=== PATIENT | female | born 1975 | race American Indian/Alaskan Native ===

== ENCOUNTER 2017-07-30 13:13 | Emergency (ER) | payer MEDICAID, OTHER ==
[2017-06-19 13:24] VITALS: BMI 24.3
[2017-07-30 14:56] LABS: BASO % 0.4 % (0.0-2.0); EOS # 0.1 K/uL (0.0-0.7); EOS % 0.8 % (0.0-4.0); HEMATOCRIT 36.3 % (34.0-47.0); LYMPH # 1.4 K/uL (1.0-4.3); LYMPH % 20.2 % (20.0-40.0); MEAN CELL VOLUME 89.6 fL (81.0-99.0); MEAN CORPUSCULAR HEMOGLOBIN 29.5 pg (27.0-31.0); MEAN CORPUSCULAR HGB CONC 32.9 g/dL (33.0-37.0); MEAN PLATELET VOLUME 8.4 fL (7.2-11.7); MONO # 0.6 K/uL (0.0-0.8); MONO % 8.8 % (0.0-10.0); NRBC % 0.1 % (0.0-2.0); RED CELL DISTRIBUTION WIDTH 14.1 % (11.5-14.5); WHITE BLOOD COUNT 7.1 K/uL (4.8-10.8)
[2017-07-30 15:17] LABS: BILIRUBIN,TOTAL 0.6 mg/dL (0.2-1.3); CALCIUM 9.5 mg/dl (8.6-10.4); GFR AFRICAN-AMERICAN > 60; GLUCOSE,RANDOM 108 mg/dL (65-105); TOTAL PROTEIN 6.1 g/dL (6.3-8.3)
[2017-07-30 15:19] LABS: ALB/GLOB RATIO 1.1 (1.0-2.1); ALKALINE PHOSPHATASE 231 U/L (38-126); ALT/SGPT 24 U/L (9-52); AST/SGOT 34 U/L (14-36); BLOOD UREA NITROGEN 6 mg/dL (7-17); CARBON DIOXIDE 19 mmol/L (22-30); CHLORIDE 106 mmol/L (98-107); POTASSIUM 4.1 mmol/L (3.6-5.2); SODIUM 133 mmol/L (132-148)
[2017-07-30 15:43] LABS: RBC URINE 1 /hpf (0-3); URINE BACTERIA OCC (<OCC); URINE BILIRUBIN NEGATIVE (NEGATIVE); URINE BLOOD NEGATIVE (NEGATIVE); URINE COLOR Yellow (YELLOW); URINE GLUCOSE (UA) NORMAL (Normal); URINE KETONE NEGATIVE (NEGATIVE); URINE LEUKOCYTE ESTERASE NEG Leu/uL (Negative); URINE PROTEIN NEGATIVE (NEGATIVE); URINE UROBILINOGEN NORMAL mg/dL (0.2-1.0); WBC URINE 4 /hpf (0-5)
[2017-07-30] MEDS ORDERED: Betamethasone Soluspan 30 mg/5mL Inj Susp IM ONE (15:51)
[2017-07-30 23:12] VITALS: BP 115/74; PULSE 83
== END 2017-07-30 19:12 | disposition home or self-care (01) ==
LOC: C.EROB 13:13
DX: O47.03 False labor before 37 completed weeks of gestation, third trimester (principal); Z3A.34 34 weeks gestation of pregnancy
CPT/HCPCS: 80053; 81001; 85025; 86850; 86900; 99283; J0702

== ENCOUNTER 2017-08-24 15:09 | Inpatient (IN) | payer OTHER, MEDICAID ==
[2017-08-24 15:44] VITALS: BMI 29.0
[2017-08-24] MEDS ORDERED: Sodium Citrate/Citric Acid 15 ml Sol PO ONE (15:44)
[2017-08-24] MEDS ORDERED: cefOXitin IV 2 gm in Dextrose 2 GM/50 ML BAG IVPB ONE (15:44)
[2017-08-24] MEDS ORDERED: Lactated Ringer's 1,000 ML IV SCH ×2 (15:45)
[2017-08-24] MEDS ORDERED: cefOXitin 2 GM in Dextrose 5% In Water 100 ML IV SCH (16:00)
[2017-08-24] MEDS ORDERED: Oxytocin 20 units in LR 2,000 ML IV ONE (16:03)
[2017-08-24 16:12] LABS: BASO # 0.1 K/uL (0.0-0.2); BASO % 0.7 % (0.0-2.0); EOS # 0.1 K/uL (0.0-0.7); EOS % 0.6 % (0.0-4.0); HEMOGLOBIN 12.2 g/dL (11.0-16.0); LYMPH # 1.7 K/uL (1.0-4.3); LYMPH % 20.4 % (20.0-40.0); MEAN CELL VOLUME 90.3 fL (81.0-99.0); MEAN CORPUSCULAR HEMOGLOBIN 30.2 pg (27.0-31.0); MEAN CORPUSCULAR HGB CONC 33.5 g/dL (33.0-37.0); MEAN PLATELET VOLUME 8.8 fL (7.2-11.7); MONO # 0.6 K/uL (0.0-0.8); MONO % 7.8 % (0.0-10.0); NEUT # 5.7 K/uL (1.8-7.0); NEUT % 70.5 % (50.0-75.0); NRBC % 0.1 % (0.0-2.0); RBC 4.05 Mil/uL (3.80-5.20); RED CELL DISTRIBUTION WIDTH 14.6 % (11.5-14.5); WHITE BLOOD COUNT 8.2 K/uL (4.8-10.8)
[2017-08-24] MEDS ORDERED: cefOXitin 2 GM in Dextrose 5% In Water 100 ML IV ONE (16:15)
[2017-08-24 16:30] LABS: ALBUMIN 3.3 g/dL (3.5-5.0); ALT/SGPT 21 U/L (9-52); AST/SGOT 28 U/L (14-36); BLOOD UREA NITROGEN 4 mg/dL (7-17); CALCIUM 9.4 mg/dl (8.6-10.4); GFR AFRICAN-AMERICAN > 60; GFR NON-AFRICAN AMERICAN > 60
[2017-08-24 16:34] LABS: SQUAMOUS EPITHIAL 14 /hpf (0-5); URINE BACTERIA OCC (<OCC); URINE BILIRUBIN NEGATIVE (NEGATIVE); URINE BLOOD NEGATIVE (NEGATIVE); URINE CLARITY Hazy (Clear); URINE COLOR Yellow (YELLOW); URINE GLUCOSE (UA) NORMAL (Normal); URINE LEUKOCYTE ESTERASE NEG Leu/uL (Negative); URINE NITRATE NEGATIVE (NEGATIVE); URINE PROTEIN NEGATIVE (NEGATIVE); URINE UROBILINOGEN NORMAL mg/dL (0.2-1.0)
[2017-08-24 16:52] LABS: HEPATITIS B SURFACE AG NEGATIVE (NEGATIVE)
[2017-08-24] MEDS ORDERED: Sodium Citrate/Citric Acid 15 ml Sol ONE (17:00)
[2017-08-24 17:04] LABS: PROTHROMBIN TIME 11.3 SECONDS (9.7-12.2)
--- NOTE | 2017-08-24 18:52 | OBHP ---
Datetime: 08/24/2017 18:33 IP Adm Impression: Term, intrauterine ; No Active Labor IP Chief Complaint Other: Previous c/S; cholestasis of ; Breech presentation IP Admit Plan: Admit to unit; Initiate Section protocol Admit Comment, IP Provider: This is a private patient of Dr. Brenda coelho 42 y.o. , LMP 12/07/16, ALCIDES 09/13/17, EGA 37w 1d previous C/S x1, x 1 referred by PMD f or evaluaton of cholestasis of . Presented for visit today c/o abdominal itching on set 1 day ago; accompanied by worsening pedal edema over past 1-2 days.. (+) AFM; (+) occ Ctx onset e arlier this morning, pain scale now 6/10. issues: AMA; Breech presentation; nuchal cord x 3 on most recent ultrasound P OB: 1995, C/S, female 38 weeks, 6lb 11 oz, Breech; no complications. 1997, , 39 weeks, male 6lb 11oz. [facility] [place]. 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 No h/o STI; (+) h/o fibroids. No h/o abnormal Pap PMH: denies PSH: D_C x 4; C/S x 1; Foot surgery x 2 "spurs" NKDA Meds: PNV Soc Hx: denies tobacco, illicit drug or EtOH use. . 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 Fam Hx: Mother alive 58 no med issues. Father age 38 - renal failure. P.E.: as above. Obese, in NAD. Awake, alert, oriented to time, person and place. Pleasant and co operative Assessment: 42 y.o. P2042, 37w 1d, cholestasis of , uterine contraactions, Breech present ation for elective repeat C/S. Pateint last ate breakfast 0900 hours; drank a gulp of water 1300hour s. Category 1 tracing. Clincally stable. Plan: 1) Admit 2) NPO 3) IVFs 4) continuous EFM 5) Admission labs 6) Martinez 7) Mefoxin 8) notify anesthesia 9) plant controls specialist to o.R - as per and discuassed with Dr. Coelho Pelvic Type - PN: Adequate Extremities - PN: Normal Abdomen - PN: Normal Back - PN: Normal Breast - PN: Not Done Lungs - PN: Normal Heart - PN: Normal Thyroid - PN: Not Done Neurologic - PN: Normal HEENT - PN: Normal General - PN: Normal FHR - Baseline A Provider: 145 Comments, ACOG Physical Exam: Abdomen: Obese. Soft non tender. Gravid All other systems reviewed and are negative EGA AdmitDate IP: 37.1 Vital Signs Provider: Reviewed IP Chief Complaint: Other NICHD Variability Prov Fetus A: Moderate 6-25bpm NICHD Accel Fetus A IP Provider: 15X15 FHR Category Provider Fetus A: Category I NICHD Decel Fetus A IP Provider: None Dilatation, Provider: 0 Effacement, Provider: 30 Station, Provider: high Genitourinary Exam: Normal DTRs - PN: Not Done Datetime: 07/30/2017 18:38 Presentation-Admit: Vertex Membranes, Provider: Intact Gestation - Est Wks by US: 34.1
[2017-08-24] MEDS ORDERED: Morphine 1 mg/ml preservative-free Inj(Duramorph) ONE (18:54)
--- NOTE | 2017-08-24 19:04 | OBADHP ---
Datetime: 08/24/2017 18:33 IP Chief Complaint Other: Previous c/S; cholestasis of ; Breech presentation Admit Comment, IP Provider: This is a private patient of Dr. Brenda coelho 42 y.o. , LMP 12/07/16, ALCIDES 09/13/17, EGA 37w 1d previous C/S x1, x 1 referred by PMD f or evaluaton of cholestasis of . Presented for visit today c/o abdominal itching on set 1 day ago; accompanied by worsening pedal edema over past 1-2 days.. (+) AFM; (+) occ Ctx onset e arlier this morning, pain scale now 6/10. issues: AMA; Breech presentation; nuchal cord x 3 on most recent ultrasound P OB: 1995, C/S, female 38 weeks, 6lb 11 oz, Breech; no complications. 1997, , 39 weeks, male 6lb 11oz. [facility] [place]. 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 No h/o STI; (+) h/o fibroids. No h/o abnormal Pap PMH: denies PSH: D_C x 4; C/S x 1; Foot surgery x 2 "spurs" NKDA Meds: PNV Soc Hx: denies tobacco, illicit drug or EtOH use. . 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 Fam Hx: Mother alive 58 no med issues. Father age 38 - renal failure. P.E.: as above. Obese, in NAD. Awake, alert, oriented to time, person and place. Pleasant and co operative Assessment: 42 y.o. P2042, 37w 1d, cholestasis of , uterine contraactions, Breech present ation for elective repeat C/S. Pateint last ate breakfast 0900 hours; drank a gulp of water 1300hour s. Category 1 tracing. Clincally stable. Plan: 1) Admit 2) NPO 3) IVFs 4) continuous EFM 5) Admission labs 6) Martinez 7) Mefoxin 8) notify anesthesia 9) personnel clerk to o.R - as per and discuassed with Dr. Coelho agree with above pt seen and c/o of severe ctx pain every 3-5 min 04/26 requesting pain medicain. pt dneis any lo, v b, +FM. pt reports severe itching pt reexamined /-3 vtx intact plan admit for repeat cxs as above Pelvic Type - PN: Adequate Extremities - PN: Normal Abdomen - PN: Normal Back - PN: Normal Breast - PN: Not Done Lungs - PN: Normal Heart - PN: Normal Thyroid - PN: Not Done Neurologic - PN: Normal HEENT - PN: Normal General - PN: Normal FHR - Baseline A Provider: 145 Comments, ACOG Physical Exam: Abdomen: Obese. Soft non tender. Gravid All other systems reviewed and are negative IP Hx Assessment: The History has been Reviewed and is Current Vital Signs Provider: Reviewed IP Chief Complaint: Other NICHD Variability Prov Fetus A: Moderate 6-25bpm NICHD Accel Fetus A IP Provider: 15X15 FHR Category Provider Fetus A: Category I NICHD Decel Fetus A IP Provider: None Dilatation, Provider: 0 Effacement, Provider: 30 Station, Provider: high Genitourinary Exam: Normal DTRs - PN: Not Done EGA AdmitDate IP: 37.1 IP Adm Impression: Term, intrauterine ; No Active Labor IP Admit Plan: Admit to unit; Initiate Section protocol Datetime: 07/30/2017 18:38 Presentation-Admit: Vertex Membranes, Provider: Intact Gestation - Est Wks by US: 34.1
--- NOTE | 2017-08-24 20:19 | OBDS ---
DELIVERY PERSONNEL Delivery Doctor: Bre Peralta MD Scrub Nurse: Lakshmi Espinal Visually Impaired Teacher: Jillian Carreon RN Anesthesiologist: Dr. Weems MATERNAL INFORMATION Delivery Anesthesia: Spinal Medications in Delivery: pitocin 20 units Estimated Blood Loss (ml): 800 Placenta Cultured: No RN Comments: Delivered to a live baby girl by repeat CS with 9/9 breech presentation. Provider Comments: repeat CxS breech Dr Papa Roger Surgcai assisatnt live remale , footling breech apgars 9,9 weight of 6bl14 ounce johanna 800 ml no cmplicatiosn LABOR SUMMARY EDC: 09/13/2017 00:00 No. Babies in Womb: 1 Attempted: No LABOR INFORMATION Reason for Induction: Not Applicable Group B Beta Strep: Negative Steroids Given: None Reason Steroids Not Administered: Not Applicable MEMBRANES Membranes Rupture Method: Artificial Rupture of Membranes: 08/24/2017 19:27 Length of Rupture (hrs): 0.00 Amniotic Fluid Color: Clear Amniotic Fluid Amount: Moderate Amniotic Fluid Odor: Normal STAGES OF LABOR Stage 3 hrs: 0 Stage 3 min: 1 CSECTION DELIVERY Primary Indication: Repeat CS CSection Urgency: N/A CSection Incidence: Repeat Elective: Nonelective CSection Incision: Lower Uterine Transverse BABY A INFORMATION Delivery Date/Time: 08/24/2017 19:27 Method of Delivery: Born in Route : No : N/A Forceps: N/A Vacuum Extraction: N/A Shoulder Dystocia : No SHOULDER DYSTOCIA BABY A Infant Delivery Date/Time: 08/24/2017 19:27 PRESENTATION/POSITION BABY A Presentation: Breech Cephalic Presentation: N/A Breech Presentation: Adalberto PLACENTA INFORMATION BABY A Placenta Delivery Time : 08/24/2017 19:28 Placenta Method of Delivery: Manual Removal Placenta Status: Delivered SCORES BABY A Heart Rate 1 min: >100 bpm Resp Effort 1 min: Good Cry Reflex Irritability 1 min: Cough or Sneeze or Pulls Away Muscle Tone 1 min: Active Motion Color 1 min: Body [place], Extremities Blue SCORE 1 MIN: 9 Heart Rate 5 min: >100 bpm Resp Effort 5 min: Good Cry Reflex Irritability 5 min: Cough or Sneeze or Pulls Away Muscle Tone 5 min: Active Motion Color 5 min: Body [place], Extremities Blue SCORE 5 MIN: 9 INFORMATION BABY A Gestational Age at Delivery: 37.1 Gestational Status: Term Infant Outcome : Liveborn Condition : Stable Sex: Female IDENTIFICATION/MEDS BABY A ID Band Number: [id number] ID Band Location: Left Leg; Left Arm Sensor Applied: Yes Sensor Number: [id number] Sensor Location : Cord Clamp WEIGHT/LENGTH BABY A Infant Birthweight (gms): 3120 Weight (lb): 6 Weight (oz): 14 Length Inches: 19.00 Infant Length cms: 48.3 CORD INFORMATION BABY A No. Cord Vessels: 3 Nuchal Cord : N/A Cord Blood Taken: Yes Infant Suction: Mouth ASSESSMENT BABY A Complications: None Physical Findings at Delivery: Within Normal Limits Respirations: Appears Normal Regional Sales Associate/ALS Called : No Care By: dr. Orourke Transferred To: Nursery
--- NOTE | 2017-08-24 20:28 | PCM.SURG1 ---
Surgeon's Initial Post Op Note - Surgeon's Notes Surgeon: Brenda Peralta< Coal Yard Supervisor: Zaira Roger MD Type of Anesthesia: Spinal Pre-Operative Diagnosis: Pervius Cesearen section, intrahepatic choelstai of , contractin in labor, breech presentation Operative Findings: live female infant, footling breech presentatin, agpars 9,9 weight of 6lbs 14 ounces, ebl 800 ml, pediatrical present for delivery. dense adhesions, unable to exteriorize uteurs. Dr Zaira Roger was surgical assisatn and presnet for entire case and essential in gainign entry, teractin, expousre, lysing adhesions, delevoping bladder flap, uterien incsin, develring , closign all layers, obtaing hemotasis Post-Operative Diagnosis: same as above Operation Performed: Repeat Low Transverse Cesearen section Specimen/Specimens Removed: placenta Estimated Blood Loss: EBL {In ML}: 800 Blood Products Given: N/A Drains Used: No Drains Date of Surgery/Procedure: 08/24/17 Time of Surgery/Procedure: 19:15
--- NOTE | 2017-08-25 05:25 | OBPPN ---
Datetime: 08/25/2017 05:14 PP Pain Prov: Within normal limits PP Nausea Prov: Denies PP Flatus Prov: No PP BM Prov: No PP Breasts Prov: Normal PP Heart Prov: Normal PP Lungs Prov: Normal PP Abdomen/Uterus Prov: Normal PP Lochia Prov: Normal PP Vulva/Perineum Prov: Normal PP CVA Tenderness Prov: Normal PP Extremities Prov: Normal PP C/S Incision Prov: Normal PP Progress Prov: Normal PP Impression Prov: Normal progression PP Plan Prov: Continue present management PP Progress Note Prov: pt seen and examined in bed. not out of bed, not yet ambuatind, + hernandez naga ther. pt tolerting liquid diet, dnies any fever, chills, naues,v omiting, cp, sob. VSS PE See aove A/P s/p RLTCS POD #1 doing well -pain managm,ent: percocet /motirn -adviace diet as tolerated -iv heplock once tolerating regular diet -dc hernandez -encourge ambautin, breast feeding -incentive spirometer, abodminal binder -f/u am labs Vital Signs Provider PP: Reviewed; Within Normal Limits
[2017-08-25 07:42] LABS: BASO % 0.2 % (0.0-2.0); EOS % 0.4 % (0.0-4.0); LYMPH % 8.8 % (20.0-40.0); MEAN CELL VOLUME 90.4 fL (81.0-99.0); MEAN CORPUSCULAR HEMOGLOBIN 30.6 pg (27.0-31.0); MEAN CORPUSCULAR HGB CONC 33.9 g/dL (33.0-37.0); MEAN PLATELET VOLUME 8.3 fL (7.2-11.7); MONO # 0.8 K/uL (0.0-0.8); MONO % 7.1 % (0.0-10.0); NEUT # 9.1 K/uL (1.8-7.0); NEUT % 83.5 % (50.0-75.0); PLATELET COUNT 271 K/uL (130-400); RBC 3.59 Mil/uL (3.80-5.20); RED CELL DISTRIBUTION WIDTH 14.3 % (11.5-14.5); WHITE BLOOD COUNT 10.9 K/uL (4.8-10.8)
--- NOTE | 2017-08-25 07:59 | OP ---
PROCEDURE DATE: 08/24/2017 SURGEON: Brenda Peralta MD CUSTOMER RELATIONS ADVISOR: Papa Roger MD, and Sin. TYPE OF ANESTHESIA: Spinal. PREOPERATIVE DIAGNOSES: Previous section, status post term intrauterine , ana lilia in labor, breech presentation. POSTOPERATIVE DIAGNOSES: Previous section, status post term intrauterine , ana lilia in labor, breech presentation. OPERATIVE FINDINGS: Live female infant, footling breech presentation, Apgars of 9 and 9, and weighs 6 pounds 14 ounces. Manager Film present for delivery. Dense adhesions exteriorized uterus. Dr. Papa Roger was the surgical forceps fabricator. He was present for the entire case and essential in gaining, entry, retraction, exposure, lysing of adhesions, bladder flap, holding the bladder blade, uterine incision, delivering the , closing all layers, and obtaining hemostasis. OPERATION PERFORMED: Repeat low-transverse section. SPECIMEN REMOVED: Placenta. ESTIMATED BLOOD LOSS: 800 mL. BLOOD PRODUCTS: None. COMPLICATIONS: None. DESCRIPTION OF PROCEDURE: The patient was taken to the operating room where she was given spinal anesthesia. Once found to be adequate, she was positioned on the operating table in dorsal supine position. The patient was then prepped and draped in the usual sterile fashion. A time-out confirmed correct patient and correct procedure. The patient was given preoperative prophylactic antibiotic. Following this, a Pfannenstiel skin incision was made through the existing incision and carried down to the underlying fascia with a scalpel. The fascia was incised in the midline and the incision was extended laterally with the Bovie. The inferior aspect of the fascial incision was grasped with Allis and Chely clamps and the underlying rectus muscle dissected off using Stephens scissors. Attention was then turned to the superior aspect of the incision in a similar fashion, it was grasped with Chely clamps and underlying rectus muscle resected off with Stephens scissors. The rectus muscle was then bluntly in the midline using two Allis clamps to find a clear plane. Incision was extended superiorly until there was good visualization. The peritoneum was identified in the clear space, tented up with two Stormy clamps, entered the clear space with the Metzenbaum scissors. The incision was extended laterally and superiorly until there was good visualization. There were dense adhesions noted from the uterus to the anterior abdominal wall, which were carefully lysed. The lower end of the Shaun was then inserted and the vesicouterine peritoneum was incised with Metzenbaum scissors. The incision was extended laterally, the bladder flap was created digitally, and the lower end of the Aladdin was then reinserted. The lower uterine segment was incised in a transverse fashion. The uterine incision was extended laterally with bandage scissors. Following this, amniotic fluid membranes were ruptured and there was clear fluid noted. Following this, the lower extremity of the was delivered using the Pinard's method on each extremity. Following delivery of the bottom, the baby was then delivered to the level of the scapula in which the arm was then delivered on each side. The Zioliokom-[id number] maneuver was then performed with the finger in the mouth and the head flexed down, and the 's head was delivered atraumatically. Both oral and nasal passages of the baby were bulb suctioned. The umbilical cord was clamped and cut, and the baby was handed off to the awaiting coin collector. Cord blood and cord gases were collected and sent x2. The placenta was then delivered manually. The uterus was unable to be exteriorized due to extensive adhesions and the uterus was cleared off all clots and debris and the uterine incision was repaired with 0 Vicryl in a running continuous locked fashion. A second layer of the same suture was used to close the uterus in a running imbricated manner. There was good hemostasis at the uterine incision site. The peritoneum and muscles were re-approximated and closed with 2-0 chromic in a running continuous fashion. The fascia was re-approximated and closed with 0 Vicryl in a running continuous fashion. The subcutaneous incision was closed with 2- plain in an interrupted manner and the skin was re-approximated and closed with enoch. At the end of the procedure, all needles, sponge, and instrument counts were noted as correct x2. The patient tolerated the procedure well and was transferred to the recovery room in stable condition. Brenda Peralta MD
[2017-08-25] MEDS ORDERED: DiphenhydrAMINE 50 mg/ml Inj IVP ONE (08:15)
[2017-08-25 08:49] LABS: BANDS 2 % (0-2); LYMPHOCYTE 9 % (20-40); MONOCYTE 4 % (0-10); NEUTROPHIL 85 % (50-75); PLATELET ESTIMATE NORMAL (NORMAL); TOTAL CELLS COUNTED 100
[2017-08-25] MEDS: Simethicone 80 mg Chewtab PO SCH ×5 (09:02→21:40)
[2017-08-25] MEDS ORDERED: Bisacodyl 5mg EC Tab PO ONE (20:33)
[2017-08-25] MEDS: Oxycodone/Acetaminophen 5/325 mg Tab PO PRN (21:36)
[2017-08-26] MEDS: Oxycodone/Acetaminophen 5/325 mg Tab PO PRN ×2 (03:59→16:28)
[2017-08-26] MEDS: Simethicone 80 mg Chewtab PO SCH ×4 (09:54→22:05)
--- NOTE | 2017-08-26 20:14 | OBDCSUM ---
Datetime: 08/26/2017 20:12 Discharged to, Provider: Home Follow up at, Provider: Dr Peralta Disch Instr Activity: Normal activity Disch Instr Diet: Regular Discharge Instructions, Provider: Routine instructions given Discharge Diagnosis, Provider: Term Delivered Discharge Time: 08/26/2017 20:12 Follow up in weeks, Provider: 1 week Disch Referrals: None Contraception discussed, Prov: Yes Disch Activity Restrictions: No exercising; No lifting; No driving; Minimize stair-climbing; No sexu al activity; Nothing in vagina - [place], tampons, douche Discharge Comment, Provider: rto 1 week for staple removal preatuion given d/c in am Contraception after Delivery: Not Planning to Use
--- NOTE | 2017-08-26 20:14 | OBPPN ---
Datetime: 08/26/2017 20:10 PP Pain Prov: Within normal limits PP Nausea Prov: Denies PP Flatus Prov: No PP BM Prov: No PP Breasts Prov: Normal PP Heart Prov: Normal PP Lungs Prov: Normal PP Abdomen/Uterus Prov: Normal PP Lochia Prov: Normal PP Vulva/Perineum Prov: Normal PP CVA Tenderness Prov: Normal PP Extremities Prov: Normal PP C/S Incision Prov: Normal PP Progress Prov: Normal PP Comments Phys Exam Prov: incison c/d/i abd soft, TTP over insin, no guarind, no reboudn tendenress, no rigdity, +BS moderate lochai non fuol smelling EX:T 1+ le edema, non pitting, negative homans sign, puses 2+b/ PP Impression Prov: Normal progression PP Plan Prov: Continue present management PP Progress Note Prov: pt seen and exmined adn reports pain over right side of incsin, not alleviate d to oral meds. pt ambaitnf, not passign flatus, no bm, tolerating regular diet, voiding well. pt den ies any feer, chills, nause,v oting, cp, sob VSS PE see above a/p s/p RLTCS POD #2 -pain managnet Mitzi 30mg IVP q 6 hour prn pain , will transfion to po once controlled -bowel regimen, simeithion, mom, -[id number] mabtion, breat feeding -cont current mangament Vital Signs Provider PP: Reviewed; Within Normal Limits
[2017-08-26 20:59] VITALS: O2SAT 98
[2017-08-27] MEDS: Oxycodone/Acetaminophen 5/325 mg Tab PO PRN ×2 (00:35→08:59)
[2017-08-27 07:47] VITALS: BP 119/77; PULSE 83; RESP 18; TEMP 99.5
[2017-08-27] MEDS: Simethicone 80 mg Chewtab PO SCH ×2 (10:03→13:43)
[2017-08-27] MEDS ORDERED: Influenza Vaccine 60 mcg/0.5 mL SYR (4YR UP) IM ONE (13:45)
== END 2017-08-27 14:35 | disposition home or self-care (01) | DRG 765 ==
LOC: C.EROB 15:09 → EEVIPCON 15:40 → C.4D 15:40 → C.4M 22:50
PROVIDERS: ADMIT Obstetrics & Gynecology; ATTEND Obstetrics & Gynecology
PROC: 10D00Z1 Extraction of Products of Conception, Low, Open Approach (ICD-10-PCS; principal; 2017-08-24)
DX: O69.81X0 Labor and delivery complicated by cord around neck, without compression, not applicable or unspecified (principal); K83.1 Obstruction of bile duct; O26.62 Liver and biliary tract disorders in childbirth; O32.8XX0 Maternal care for other malpresentation of fetus, not applicable or unspecified; O34.211 Maternal care for low transverse scar from previous cesarean delivery; Z3A.37 37 weeks gestation of pregnancy; Z37.0 Single live birth